=== PATIENT | female | born 2000 | race Caucasian/White ===

== ENCOUNTER 2023-01-27 17:01 | Emergency (ER) | payer OTHER, BC ==
[2023-01-27] MEDS ORDERED: Acetaminophen 500 MG Tab PO ONE (19:13)
== END 2023-01-27 19:30 | disposition home or self-care (01) ==
LOC: DL.ED 17:01
DX: S06.0X0A Concussion without loss of consciousness, initial encounter (principal); M54.2 Cervicalgia; M25.561 Pain in right knee; M25.562 Pain in left knee; Z72.0 Tobacco use; V43.52XA Car driver injured in collision with other type car in traffic accident, initial encounter; Y92.410 Unspecified street and highway as the place of occurrence of the external cause
CPT/HCPCS: 70450; 72125; 81025; 99283; 99284